=== PATIENT | female | born 1940 | race African-American/Black ===

== ENCOUNTER 2018-08-28 02:51 | Inpatient (IN) ==
[2018-08-28] MEDS ORDERED: methylPREDNISolone SOD SUC 125 MG/2 ML VIAL IV STA (03:08)
[2018-08-28] MEDS ORDERED: ONDANSETRON 4 MG/2 ML VIAL IV STA (03:08)
[2018-08-28] MEDS ORDERED: FUROSEMIDE 100 MG/10 ML VIAL IV STA (03:08)
[2018-08-28] MEDS ORDERED: ASPIRIN 325 MG TABLET PO STA (03:08)
[2018-08-28] MEDS ORDERED: ALBUTEROL 2.5 MG/3 ML NEB RESP TX SCH (03:30)
[2018-08-28 03:34] LABS: Basophils % 0.2 % (0.0-0.8); Hematocrit 34.7 VOL% (35.7-47.0); Immature Granulocytes % 0.8 %; Immature Granulocytes Absolute 0.12 #; Lymphocytes # 0.4 10*3/uL (1.4-4.0); Lymphocytes % 2.6 % (21.3-54.2); Mean Corpuscular HGB Conc 29.4 GM/DL (32-36); Mean Corpuscular Hemoglobin 26 PG (27-34); Mean Corpuscular Volume 88.7 FL (87-102); Mean Platelet Volume 10.9 FL (9.6-12.0); Monocytes # 0.3 10*3/uL (0.11-0.8); Monocytes % 1.8 % (1.7-12.7); Neutrophils % 94.6 % (38.7-73.9); Platelet Count 200 T/CUMM (130-400); Red Blood Count 3.91 MC/CUMM (3.8-5.5); Red Cell Distribution Width 18.6 % (9.3-17.3); White Blood Count 15.8 T/CUMM (4-12)
[2018-08-28 03:41] LABS: Hemoglobin 10.3 GM/DL (12.0-16.0)
[2018-08-28 03:43] LABS: INR 0.9; PT Patient Result 10.2 SECS
[2018-08-28 03:44] LABS: Apearance,Urine CLEAR (Clear); Bilirubin,Urine Negative (Negative); Blood, Urine Negative (Negative); Glucose,Urine (UA) Negative (Negative); Hyaline Casts,Urine 3 /LPF (0-3); Ketones,Urine Negative (Negative); Mucus,Urine Occasional /LPF (Occasional); Nitrite,Urine Negative (Negative); Protein,Urine Negative; RBC,Urine 8 /HPF (0-4); Urine Color Yellow (Yellow); Urine Specific Gravity 1.015 (1.001-1.035); Urine Urobilinogen < 2.0 EU/DL (0.2-1.0); WBC,Urine 12 /HPF (0-6)
[2018-08-28] MEDS ORDERED: PHENYLEPHRINE DRIP 40 MG/250 ML PREMIX IV ONE (03:45)
[2018-08-28 04:01] LABS: ABG Base Excess -4.6 MMOL/L (-2.5-2.5); ABG HCO3 20.5 MMOL/L (20-26); ABG Oxygen Saturation 95.9 % (95-100); ABG PCO2 34.4 MM HG (35-48); ABG PH 7.371 (7.35-7.45); ABG PO2 87.2 MM HG (80-95); ABG TCO2 18.1 MMOL/L (23-27)
[2018-08-28 04:03] LABS: Albumin 2.8 G/DL (3.4-5.0); Bilirubin,Total 0.4 MG/DL (0.2-1.0); Calcium 8.3 MG/DL (8.5-10.1); Osmolality,Calculated 301.4 MOS/KG (273-304); Potassium 4.1 MMOL/L (3.5-5.1); Total Protein 7.4 G/DL (6.4-8.3)
[2018-08-28] MEDS ORDERED: MAGNESIUM SULF RIDER 2 GM in PREMIX 1 EACH IV STA (04:37)
[2018-08-28] MEDS ORDERED: PIPERACILLIN/TAZOBACTAM 3,375 MG in SODIUM CHLORIDE 0.9% 100 ML IV STA (04:39)
[2018-08-28 04:48] LABS: Band Neutrophils 13 % (0-10); Lymphocytes 1 % (20-55); Segmented Neutrophils 84 % (50-85); Total Cells Counted 100
[2018-08-28 04:49] LABS: Anisocytosis 1+; Platelet Estimate Normal
[2018-08-28] MEDS: PHENYLEPHRINE DRIP 40 MG/250 ML PREMIX IV PRN (04:49)
[2018-08-28] MEDS ORDERED: ONDANSETRON 4 MG/2 ML VIAL IV PRN (05:40)
[2018-08-28] MEDS ORDERED: ACETAMINOPHEN 325 MG TABLET PO PRN (05:40)
[2018-08-28] MEDS ORDERED: ALBUTEROL/IPRATROPIUM 3 ML NEB RESP TX PRN (05:44)
[2018-08-28] MEDS ORDERED: GLUCAGON 1 MG VIAL IM PRN (05:45)
[2018-08-28] MEDS ORDERED: DEXTROSE 50% 25 GM/50 ML SYRINGE IV PRN (05:45)
[2018-08-28] MEDS ORDERED: FUROSEMIDE 40 MG/4 ML VIAL IV SCH (08:00)
[2018-08-28] MEDS ORDERED: metFORMIN 850 MG TABLET PO SCH (08:00)
[2018-08-28] MEDS: glipiZIDE 5 MG TABLET PO SCH ×2 (08:09→16:31)
[2018-08-28] MEDS: sitaGLIPtin 100 MG TABLET PO SCH (08:09)
[2018-08-28] MEDS: hydroCHLOROthiazide 12.5 MG CAPSULE PO SCH (08:09)
[2018-08-28] MEDS: MONTELUKAST 10 MG TABLET PO SCH (08:09)
[2018-08-28] MEDS: CEFTAROLINE 400 MG in SODIUM CHLORIDE 0.9% 100 ML IV SCH ×2 (08:10→18:17)
[2018-08-28] MEDS: predniSONE 20 MG TABLET PO SCH (08:10)
[2018-08-28] MEDS: PANTOPRAZOLE 40 MG TABLET PO SCH (08:10)
[2018-08-28] MEDS: INSULIN REGULAR 100 UNIT/ML SUBCUT SCH ×4 (08:11→21:10)
[2018-08-28] MEDS: ATENOLOL 25 MG TABLET PO SCH (08:12)
[2018-08-28] MEDS: ENOXAPARIN 40 MG/0.4 ML SYRINGE SUBCUT SCH (08:16)
[2018-08-28] MEDS: PENTOXIFYLLINE 400 MG TABLET PO SCH ×2 (08:16→21:10)
[2018-08-28] MEDS: ASPIRIN EC 81 MG TABLET PO SCH (08:16)
[2018-08-28] MEDS ORDERED: MAGNESIUM SULF RIDER 2 GM in PREMIX 1 EACH IV ONE (08:49)
[2018-08-28] MEDS ORDERED: VALSARTAN 160 MG TABLET PO SCH (09:00)
[2018-08-28] MEDS: FUROSEMIDE 40 MG/4 ML VIAL IV SCH ×2 (09:14→16:29)
[2018-08-29] MEDS: PHENYLEPHRINE DRIP 40 MG/250 ML PREMIX IV PRN ×3 (04:03→16:14)
[2018-08-29 04:56] LABS: Basophils # 0.1 10*3/uL (0.0-0.2); Basophils % 0.3 % (0.0-0.8); Hematocrit 33.3 VOL% (35.7-47.0); Hemoglobin 9.9 GM/DL (12.0-16.0); Immature Granulocytes % 1.7 %; Immature Granulocytes Absolute 0.39 #; Lymphocytes % 4.4 % (21.3-54.2); Mean Corpuscular HGB Conc 29.7 GM/DL (32-36); Mean Corpuscular Hemoglobin 26 PG (27-34); Mean Corpuscular Volume 87.4 FL (87-102); Monocytes # 1.2 10*3/uL (0.11-0.8); Monocytes % 5.1 % (1.7-12.7); Neutrophils # 20.4 10*3/uL (1.4-7.4); Neutrophils % 88.5 % (38.7-73.9); Red Blood Count 3.81 MC/CUMM (3.8-5.5); Red Cell Distribution Width 18.6 % (9.3-17.3)
[2018-08-29 04:58] LABS: Osmolality,Calculated 299.4 MOS/KG (273-304); Potassium 4.1 MMOL/L (3.5-5.1)
[2018-08-29 05:08] LABS: Platelet Count 114 T/CUMM (130-400)
[2018-08-29 06:09] LABS: Band Neutrophils 8 % (0-10); Lymphocytes 9 % (20-55); Platelet Estimate Decreased; Segmented Neutrophils 80 % (50-85); Total Cells Counted 100
[2018-08-29 06:10] LABS: Hypochromasia 2+
[2018-08-29] MEDS: ATENOLOL 25 MG TABLET PO SCH (08:08)
[2018-08-29] MEDS: hydroCHLOROthiazide 12.5 MG CAPSULE PO SCH (08:11)
[2018-08-29] MEDS: MONTELUKAST 10 MG TABLET PO SCH (08:36)
[2018-08-29] MEDS: sitaGLIPtin 100 MG TABLET PO SCH (08:36)
[2018-08-29] MEDS: ASPIRIN EC 81 MG TABLET PO SCH (08:40)
[2018-08-29] MEDS: PENTOXIFYLLINE 400 MG TABLET PO SCH ×2 (08:40→21:08)
[2018-08-29] MEDS: FUROSEMIDE 40 MG/4 ML VIAL IV SCH (08:40)
[2018-08-29] MEDS: predniSONE 20 MG TABLET PO SCH (08:40)
[2018-08-29] MEDS: PANTOPRAZOLE 40 MG TABLET PO SCH (08:40)
[2018-08-29] MEDS: glipiZIDE 5 MG TABLET PO SCH ×2 (08:41→17:06)
[2018-08-29] MEDS: ENOXAPARIN 40 MG/0.4 ML SYRINGE SUBCUT SCH (08:41)
[2018-08-29] MEDS: INSULIN REGULAR 100 UNIT/ML SUBCUT SCH ×4 (08:41→21:08)
[2018-08-29] MEDS: CEFTAROLINE 400 MG in SODIUM CHLORIDE 0.9% 100 ML IV SCH ×2 (08:42→19:00)
[2018-08-30] MEDS: PHENYLEPHRINE DRIP 40 MG/250 ML PREMIX IV PRN ×3 (01:37→15:50)
[2018-08-30] MEDS ORDERED: SODIUM CHLORIDE 0.9% 500 ML IV ONE (03:16)
[2018-08-30 03:50] LABS: Basophils # 0.1 10*3/uL (0.0-0.2); Basophils % 0.2 % (0.0-0.8); Hematocrit 32.2 VOL% (35.7-47.0); Hemoglobin 9.7 GM/DL (12.0-16.0); Immature Granulocytes % 1.5 %; Immature Granulocytes Absolute 0.37 #; Lymphocytes # 1.3 10*3/uL (1.4-4.0); Lymphocytes % 5.4 % (21.3-54.2); Mean Corpuscular HGB Conc 30.1 GM/DL (32-36); Mean Corpuscular Hemoglobin 26 PG (27-34); Mean Corpuscular Volume 87.3 FL (87-102); Mean Platelet Volume 11.4 FL (9.6-12.0); Monocytes # 1.2 10*3/uL (0.11-0.8); Neutrophils # 21.1 10*3/uL (1.4-7.4); Neutrophils % 87.9 % (38.7-73.9); Platelet Count 184 T/CUMM (130-400); Red Blood Count 3.69 MC/CUMM (3.8-5.5); Red Cell Distribution Width 18.3 % (9.3-17.3)
[2018-08-30 04:05] LABS: Allen Test Positive
[2018-08-30 04:05] LABS: Osmolality,Calculated 302.7 MOS/KG (273-304); Potassium 3.7 MMOL/L (3.5-5.1)
[2018-08-30 04:13] LABS: ABG Base Excess -3.9 MMOL/L (-2.5-2.5); ABG HCO3 21.1 MMOL/L (20-26); ABG Oxygen Saturation 95.7 % (95-100); ABG PCO2 45.5 MM HG (35-48); ABG PH 7.303 (7.35-7.45); ABG TCO2 20.7 MMOL/L (23-27)
[2018-08-30] MEDS ORDERED: AMIODARONE 450 MG/9 ML VIAL IV ONE (04:21)
[2018-08-30] MEDS ORDERED: AMIODARONE INJ 450 MG in DEXTROSE 5% 241 ML IV SCH (04:30)
[2018-08-30 04:59] LABS: Band Neutrophils 3 % (0-10); Lymphocytes 5 % (20-55); Platelet Estimate Normal; Segmented Neutrophils 89 % (50-85); Total Cells Counted 100
[2018-08-30] MEDS: CEFTAROLINE 400 MG in SODIUM CHLORIDE 0.9% 100 ML IV SCH ×2 (06:13→21:43)
[2018-08-30] MEDS: ASPIRIN EC 81 MG TABLET PO SCH (09:03)
[2018-08-30] MEDS: MONTELUKAST 10 MG TABLET PO SCH (09:03)
[2018-08-30] MEDS: predniSONE 20 MG TABLET PO SCH (09:03)
[2018-08-30] MEDS: glipiZIDE 5 MG TABLET PO SCH ×2 (09:03→18:08)
[2018-08-30] MEDS: FUROSEMIDE 80 MG TABLET PO SCH (09:03)
[2018-08-30] MEDS: ENOXAPARIN 40 MG/0.4 ML SYRINGE SUBCUT SCH (09:03)
[2018-08-30] MEDS: sitaGLIPtin 100 MG TABLET PO SCH (09:03)
[2018-08-30] MEDS: PENTOXIFYLLINE 400 MG TABLET PO SCH ×2 (09:03→21:43)
[2018-08-30] MEDS: INSULIN REGULAR 100 UNIT/ML SUBCUT SCH ×4 (09:04→21:43)
[2018-08-30] MEDS: hydroCHLOROthiazide 12.5 MG CAPSULE PO SCH (09:04)
[2018-08-30] MEDS: ATENOLOL 25 MG TABLET PO SCH (09:04)
[2018-08-30] MEDS: PANTOPRAZOLE 40 MG TABLET PO SCH (09:06)
[2018-08-30] MEDS: LEVOFLOXACIN INJ 750 MG in PREMIX 1 EACH IV SCH (11:00)
[2018-08-30] MEDS: methylPREDNISolone SOD SUC 40 MG/1 ML VIAL IV SCH ×2 (11:00→18:35)
[2018-08-30] MEDS: LOPERAMIDE 0.2 MG/ML 30 ML/BOTTLE PO PRN (22:49)
[2018-08-31] MEDS: methylPREDNISolone SOD SUC 40 MG/1 ML VIAL IV SCH ×3 (03:19→17:53)
[2018-08-31 04:04] LABS: Basophils % 0.2 % (0.0-0.8); Hemoglobin 10.4 GM/DL (12.0-16.0); Immature Granulocytes % 0.8 %; Immature Granulocytes Absolute 0.13 #; Lymphocytes # 0.5 10*3/uL (1.4-4.0); Lymphocytes % 3.1 % (21.3-54.2); Mean Corpuscular HGB Conc 30.6 GM/DL (32-36); Mean Corpuscular Hemoglobin 26 PG (27-34); Mean Corpuscular Volume 85.9 FL (87-102); Mean Platelet Volume 12.6 FL (9.6-12.0); Monocytes # 0.6 10*3/uL (0.11-0.8); Monocytes % 3.5 % (1.7-12.7); Neutrophils % 92.4 % (38.7-73.9); Platelet Count 195 T/CUMM (130-400); Red Blood Count 3.96 MC/CUMM (3.8-5.5); Red Cell Distribution Width 17.9 % (9.3-17.3); White Blood Count 16.2 T/CUMM (4-12)
[2018-08-31 04:34] LABS: Calcium 8.1 MG/DL (8.5-10.1); Osmolality,Calculated 312.4 MOS/KG (273-304); Potassium 3.6 MMOL/L (3.5-5.1)
[2018-08-31 05:03] LABS: Band Neutrophils 1 % (0-10); Lymphocytes 4 % (20-55); Segmented Neutrophils 94 % (50-85); Total Cells Counted 100
[2018-08-31 05:04] LABS: Hypochromasia 1+; Platelet Estimate Normal; Target Cells Few
[2018-08-31] MEDS: PHENYLEPHRINE DRIP 40 MG/250 ML PREMIX IV PRN (06:36)
[2018-08-31] MEDS: PANTOPRAZOLE 40 MG TABLET PO SCH (08:36)
[2018-08-31] MEDS: sitaGLIPtin 100 MG TABLET PO SCH (08:36)
[2018-08-31] MEDS: FUROSEMIDE 80 MG TABLET PO SCH (08:36)
[2018-08-31] MEDS: MONTELUKAST 10 MG TABLET PO SCH (08:36)
[2018-08-31] MEDS: INSULIN REGULAR 100 UNIT/ML SUBCUT SCH ×4 (08:36→20:21)
[2018-08-31] MEDS: ASPIRIN EC 81 MG TABLET PO SCH (08:36)
[2018-08-31] MEDS: glipiZIDE 5 MG TABLET PO SCH ×2 (08:36→17:52)
[2018-08-31] MEDS: PENTOXIFYLLINE 400 MG TABLET PO SCH ×2 (08:36→20:22)
[2018-08-31] MEDS: ENOXAPARIN 40 MG/0.4 ML SYRINGE SUBCUT SCH (08:37)
[2018-08-31] MEDS: hydroCHLOROthiazide 12.5 MG CAPSULE PO SCH (08:38)
[2018-08-31] MEDS: ATENOLOL 25 MG TABLET PO SCH (08:38)
[2018-08-31] MEDS: ceFAZolin 1,000 MG in SYRINGE 1 EACH IV SCH ×3 (09:45→20:21)
[2018-09-01] MEDS: methylPREDNISolone SOD SUC 40 MG/1 ML VIAL IV SCH ×3 (02:42→17:25)
[2018-09-01] MEDS: ceFAZolin 1,000 MG in SYRINGE 1 EACH IV SCH ×4 (02:43→20:47)
[2018-09-01 04:24] LABS: Basophils % 0.2 % (0.0-0.8); Hematocrit 34.9 VOL% (35.7-47.0); Hemoglobin 10.6 GM/DL (12.0-16.0); Immature Granulocytes % 0.9 %; Immature Granulocytes Absolute 0.13 #; Lymphocytes # 0.7 10*3/uL (1.4-4.0); Lymphocytes % 4.9 % (21.3-54.2); Mean Corpuscular HGB Conc 30.4 GM/DL (32-36); Mean Corpuscular Hemoglobin 26 PG (27-34); Mean Corpuscular Volume 86.2 FL (87-102); Mean Platelet Volume 12.4 FL (9.6-12.0); Monocytes # 0.6 10*3/uL (0.11-0.8); Monocytes % 4.6 % (1.7-12.7); NRBC # 0.15 10*3/uL; Neutrophils # 12.5 10*3/uL (1.4-7.4); Neutrophils % 89.4 % (38.7-73.9); Platelet Count 221 T/CUMM (130-400); Red Blood Count 4.05 MC/CUMM (3.8-5.5); Red Cell Distribution Width 17.6 % (9.3-17.3)
[2018-09-01 04:31] LABS: Calcium 8.2 MG/DL (8.5-10.1); Osmolality,Calculated 314.3 MOS/KG (273-304); Potassium 3.2 MMOL/L (3.5-5.1)
[2018-09-01] MEDS ORDERED: LACTATED RINGERS 1,000 ML IV SCH (09:30)
[2018-09-01] MEDS: INSULIN REGULAR 100 UNIT/ML SUBCUT SCH ×4 (09:51→20:47)
[2018-09-01] MEDS: ENOXAPARIN 30 MG/0.3 ML SYRINGE SUBCUT SCH (09:53)
[2018-09-01] MEDS: PENTOXIFYLLINE 400 MG TABLET PO SCH ×2 (09:54→20:48)
[2018-09-01] MEDS: POTASSIUM CHLORIDE 20 MEQ TABLET PO PRN ×4 (09:54→16:31)
[2018-09-01] MEDS: PANTOPRAZOLE 40 MG TABLET PO SCH (09:54)
[2018-09-01] MEDS: glipiZIDE 5 MG TABLET PO SCH ×2 (09:55→16:31)
[2018-09-01] MEDS: sitaGLIPtin 100 MG TABLET PO SCH (09:55)
[2018-09-01] MEDS: MONTELUKAST 10 MG TABLET PO SCH (09:55)
[2018-09-01] MEDS: ASPIRIN EC 81 MG TABLET PO SCH (09:55)
[2018-09-01] MEDS: LEVOFLOXACIN INJ 750 MG in PREMIX 1 EACH IV SCH (09:57)
[2018-09-01] MEDS: ATENOLOL 25 MG TABLET PO SCH (09:59)
[2018-09-01] MEDS: hydroCHLOROthiazide 12.5 MG CAPSULE PO SCH (10:02)
[2018-09-01] MEDS: FUROSEMIDE 80 MG TABLET PO SCH (10:03)
[2018-09-01] MEDS ORDERED: ESTRADIOL 0.01% VAG CREAM 42.5 GM TUBE VAG SCH (17:13)
[2018-09-01] MEDS: METHENAMINE HIPPURATE 1 GM TABLET PO SCH (20:47)
[2018-09-01] MEDS: tiZANidine 4 MG TABLET PO SCH (20:48)
[2018-09-01] MEDS: LOPERAMIDE 0.2 MG/ML 30 ML/BOTTLE PO PRN (22:20)
[2018-09-02] MEDS: ceFAZolin 1,000 MG in SYRINGE 1 EACH IV SCH ×4 (02:02→21:43)
[2018-09-02] MEDS: methylPREDNISolone SOD SUC 40 MG/1 ML VIAL IV SCH ×3 (02:02→17:03)
[2018-09-02 04:09] LABS: Basophils % 0.3 % (0.0-0.8); Hematocrit 34.3 VOL% (35.7-47.0); Hemoglobin 10.1 GM/DL (12.0-16.0); Immature Granulocytes % 1.6 %; Immature Granulocytes Absolute 0.19 #; Lymphocytes # 0.8 10*3/uL (1.4-4.0); Lymphocytes % 6.6 % (21.3-54.2); Mean Corpuscular HGB Conc 29.4 GM/DL (32-36); Mean Corpuscular Hemoglobin 25 PG (27-34); Mean Corpuscular Volume 86.4 FL (87-102); Mean Platelet Volume 11.7 FL (9.6-12.0); Monocytes # 0.9 10*3/uL (0.11-0.8); Monocytes % 7.4 % (1.7-12.7); NRBC # 0.04 10*3/uL; Neutrophils # 9.8 10*3/uL (1.4-7.4); Neutrophils % 84.1 % (38.7-73.9); Platelet Count 221 T/CUMM (130-400); Red Blood Count 3.97 MC/CUMM (3.8-5.5); Red Cell Distribution Width 17.7 % (9.3-17.3); White Blood Count 11.6 T/CUMM (4-12)
[2018-09-02 04:26] LABS: Calcium 8.2 MG/DL (8.5-10.1); Osmolality,Calculated 313.3 MOS/KG (273-304); Potassium 4.1 MMOL/L (3.5-5.1)
[2018-09-02] MEDS: glipiZIDE 5 MG TABLET PO SCH ×2 (08:29→16:53)
[2018-09-02] MEDS: ENOXAPARIN 30 MG/0.3 ML SYRINGE SUBCUT SCH (08:30)
[2018-09-02] MEDS: ASPIRIN EC 81 MG TABLET PO SCH (08:31)
[2018-09-02] MEDS: INSULIN REGULAR 100 UNIT/ML SUBCUT SCH ×4 (08:31→21:42)
[2018-09-02] MEDS: METHENAMINE HIPPURATE 1 GM TABLET PO SCH ×2 (08:32→21:43)
[2018-09-02] MEDS: sitaGLIPtin 100 MG TABLET PO SCH (08:32)
[2018-09-02] MEDS: PANTOPRAZOLE 40 MG TABLET PO SCH (08:33)
[2018-09-02] MEDS: tiZANidine 4 MG TABLET PO SCH ×3 (08:33→21:43)
[2018-09-02] MEDS: MONTELUKAST 10 MG TABLET PO SCH (08:33)
[2018-09-02] MEDS: CHOLECALCIFEROL 1,000 UNIT TABLET PO SCH (08:33)
[2018-09-02] MEDS: PENTOXIFYLLINE 400 MG TABLET PO SCH ×2 (08:34→21:43)
[2018-09-02] MEDS: ATENOLOL 25 MG TABLET PO SCH (16:53)
[2018-09-03] MEDS: ceFAZolin 1,000 MG in SYRINGE 1 EACH IV SCH ×4 (02:21→20:47)
[2018-09-03] MEDS: methylPREDNISolone SOD SUC 40 MG/1 ML VIAL IV SCH ×3 (02:21→18:10)
[2018-09-03] MEDS: ENOXAPARIN 30 MG/0.3 ML SYRINGE SUBCUT SCH (09:02)
[2018-09-03] MEDS: INSULIN REGULAR 100 UNIT/ML SUBCUT SCH ×4 (09:02→20:47)
[2018-09-03] MEDS: CHOLECALCIFEROL 1,000 UNIT TABLET PO SCH (09:03)
[2018-09-03] MEDS: ASPIRIN EC 81 MG TABLET PO SCH (09:03)
[2018-09-03] MEDS: tiZANidine 4 MG TABLET PO SCH ×3 (09:03→20:47)
[2018-09-03] MEDS: sitaGLIPtin 100 MG TABLET PO SCH (09:03)
[2018-09-03] MEDS: PANTOPRAZOLE 40 MG TABLET PO SCH (09:03)
[2018-09-03] MEDS: MONTELUKAST 10 MG TABLET PO SCH (09:03)
[2018-09-03] MEDS: glipiZIDE 5 MG TABLET PO SCH ×2 (09:03→16:17)
[2018-09-03] MEDS: ATENOLOL 25 MG TABLET PO SCH (09:04)
[2018-09-03] MEDS: PENTOXIFYLLINE 400 MG TABLET PO SCH ×2 (09:04→20:47)
[2018-09-03] MEDS: METHENAMINE HIPPURATE 1 GM TABLET PO SCH ×2 (09:06→20:47)
[2018-09-03] MEDS: LEVOFLOXACIN INJ 750 MG in PREMIX 1 EACH IV SCH (09:56)
[2018-09-04] MEDS: methylPREDNISolone SOD SUC 40 MG/1 ML VIAL IV SCH ×2 (01:32→09:24)
[2018-09-04] MEDS: ceFAZolin 1,000 MG in SYRINGE 1 EACH IV SCH ×2 (01:34→09:25)
[2018-09-04] MEDS: PENTOXIFYLLINE 400 MG TABLET PO SCH (09:23)
[2018-09-04] MEDS: sitaGLIPtin 100 MG TABLET PO SCH (09:23)
[2018-09-04] MEDS: CHOLECALCIFEROL 1,000 UNIT TABLET PO SCH (09:23)
[2018-09-04] MEDS: tiZANidine 4 MG TABLET PO SCH (09:24)
[2018-09-04] MEDS: METHENAMINE HIPPURATE 1 GM TABLET PO SCH (09:24)
[2018-09-04] MEDS: ASPIRIN EC 81 MG TABLET PO SCH (09:24)
[2018-09-04] MEDS: glipiZIDE 5 MG TABLET PO SCH (09:24)
[2018-09-04] MEDS: ATENOLOL 25 MG TABLET PO SCH (09:24)
[2018-09-04] MEDS: MONTELUKAST 10 MG TABLET PO SCH (09:24)
[2018-09-04] MEDS: PANTOPRAZOLE 40 MG TABLET PO SCH (09:24)
[2018-09-04] MEDS: ENOXAPARIN 30 MG/0.3 ML SYRINGE SUBCUT SCH (09:25)
[2018-09-04] MEDS: INSULIN REGULAR 100 UNIT/ML SUBCUT SCH ×2 (09:35→14:02)
[2018-09-04 14:00] VITALS: BP 113/61
[2018-09-04] MEDS ORDERED: cephALEXin 500 MG CAPSULE PO SCH (21:00)
== END 2018-09-04 14:36 | disposition swing bed (61) | DRG 871 ==
LOC: EDUNIT# → EDBD → N.ED 02:51 → N.EDINP 05:40 → SUATTDRO 05:40 → N.ICU 06:03 → N.5E 09-03 22:05
PROVIDERS: ADMIT Internal Medicine; ATTEND Hospitalist

== ENCOUNTER 2018-10-07 16:00 | Inpatient (IN) ==
[2018-10-07] MEDS ORDERED: FUROSEMIDE 100 MG/10 ML VIAL IV STA (16:37)
[2018-10-07] MEDS ORDERED: ONDANSETRON 4 MG/2 ML VIAL IV STA (16:37)
[2018-10-07] MEDS ORDERED: LEVOFLOXACIN INJ 750 MG in PREMIX 1 EACH IV STA (16:37)
[2018-10-07] MEDS ORDERED: ALBUTEROL/IPRATROPIUM 3 ML NEB RESP TX STA (16:37)
[2018-10-07] MEDS ORDERED: methylPREDNISolone SOD SUC 125 MG/2 ML VIAL IV STA (16:37)
[2018-10-07 17:07] LABS: Basophils % 0.3 % (0.0-0.8); Eosinophils # 0.1 10*3/uL (0.0-0.87); Eosinophils % 0.6 % (0.00-10.9); Hematocrit 35.8 VOL% (35.7-47.0); Hemoglobin 10.5 GM/DL (12.0-16.0); Immature Granulocytes % 2.3 %; Immature Granulocytes Absolute 0.25 #; Lymphocytes # 1.2 10*3/uL (1.4-4.0); Lymphocytes % 10.5 % (21.3-54.2); Mean Corpuscular HGB Conc 29.3 GM/DL (32-36); Mean Platelet Volume 10.8 FL (9.6-12.0); Monocytes % 5.5 % (1.7-12.7); NRBC # 0.23 10*3/uL; Neutrophils % 80.8 % (38.7-73.9); Platelet Count 376 T/CUMM (130-400); Red Blood Count 4.07 MC/CUMM (3.8-5.5); Red Cell Distribution Width 19.7 % (9.3-17.3)
[2018-10-07 17:18] LABS: PT Patient Result 10.4 SECS; Partial Thromboplastin Time 21.5 SECS (0-40)
[2018-10-07 17:31] LABS: Apearance,Urine CLEAR (Clear); Bacteria,Urine Occasional /HPF (Few); Bilirubin,Urine Negative (Negative); Blood, Urine Negative (Negative); Glucose,Urine (UA) Negative (Negative); Hyaline Casts,Urine 3 /LPF (0-3); Ketones,Urine Negative (Negative); Mucus,Urine Occasional /LPF (Occasional); Nitrite,Urine Negative (Negative); Protein,Urine Negative; RBC,Urine <1 /HPF (0-4); Squamous Epithelial Cell,Urine Occasional /HPF (0-10); Urine Color Straw (Yellow); Urine Specific Gravity 1.009 (1.001-1.035); Urine Urobilinogen < 2.0 EU/DL (0.2-1.0); WBC,Urine 2 /HPF (0-6)
[2018-10-07 17:32] LABS: Albumin 2.9 G/DL (3.4-5.0); Bilirubin,Total 0.4 MG/DL (0.2-1.0); Calcium 8.7 MG/DL (8.5-10.1); Osmolality,Calculated 303.3 MOS/KG (273-304); Total Protein 7.4 G/DL (6.4-8.3)
[2018-10-07 17:33] LABS: Barbiturates Screen,Urine Negative (Negative); Benzodiazepines Screen,Urine Negative (Negative); Cannabinoid Screen,Urine Negative (Negative); Opiate Screen,Urine Negative (Negative); Phencyclidine Screen,Urine Negative (Negative)
[2018-10-07] MEDS ORDERED: DEXTROSE 50% 25 GM/50 ML VIAL IV PRN (21:24)
[2018-10-07] MEDS ORDERED: GLUCAGON 1 MG VIAL IM PRN (21:24)
[2018-10-07] MEDS: HEPARIN 5,000 UNIT/1 ML VIAL SUBCUT SCH (23:33)
[2018-10-08] MEDS: ALBUTEROL 0.63 MG/3 ML NEB RESP TX SCH ×4 (01:31→20:23)
[2018-10-08 05:41] LABS: Basophils % 0.1 % (0.0-0.8); Hematocrit 35.4 VOL% (35.7-47.0); Hemoglobin 10.4 GM/DL (12.0-16.0); Immature Granulocytes % 2.3 %; Immature Granulocytes Absolute 0.19 #; Lymphocytes # 0.5 10*3/uL (1.4-4.0); Mean Corpuscular HGB Conc 29.4 GM/DL (32-36); Mean Corpuscular Volume 88.7 FL (87-102); Mean Platelet Volume 11.3 FL (9.6-12.0); Monocytes % 1.8 % (1.7-12.7); NRBC # 0.11 10*3/uL; Neutrophils % 89.8 % (38.7-73.9); Platelet Count 373 T/CUMM (130-400); Red Blood Count 3.99 MC/CUMM (3.8-5.5); Red Cell Distribution Width 19.3 % (9.3-17.3); White Blood Count 8.2 T/CUMM (4-12)
[2018-10-08 05:54] LABS: Calcium 8.5 MG/DL (8.5-10.1); Thyroid Stimulating Hormone 0.294 uIU/ml (0.358-3.74)
[2018-10-08 06:40] LABS: Hypochromasia 1+; Platelet Estimate Adequate
[2018-10-08] MEDS: HEPARIN 5,000 UNIT/1 ML VIAL SUBCUT SCH ×3 (08:11→22:47)
[2018-10-08] MEDS: INSULIN LISPRO 100 UNIT/ML SUBCUT SCH ×4 (08:12→20:17)
[2018-10-08] MEDS: ASPIRIN EC 81 MG TABLET PO SCH (08:12)
[2018-10-08] MEDS: CHOLECALCIFEROL 1,000 UNIT TABLET PO SCH (08:12)
[2018-10-08] MEDS: FUROSEMIDE 40 MG/4 ML VIAL IV SCH ×2 (08:12→15:05)
[2018-10-08] MEDS: MONTELUKAST 10 MG TABLET PO SCH (08:12)
[2018-10-08] MEDS: ATENOLOL 25 MG TABLET PO SCH (08:12)
[2018-10-08] MEDS ORDERED: PENTOXIFYLLINE 400 MG TABLET PO SCH (09:00)
[2018-10-08] MEDS: sitaGLIPtin 100 MG TABLET PO SCH (09:59)
[2018-10-08] MEDS: tiZANidine 4 MG TABLET PO SCH ×2 (14:25→20:16)
[2018-10-08] MEDS: diphenhydrAMINE CAP 25 MG CAPSULE PO PRN (15:03)
[2018-10-08] MEDS: glipiZIDE 10 MG TABLET PO SCH (16:16)
[2018-10-08] MEDS: LEVOFLOXACIN INJ 500 MG in PREMIX 1 EACH IV SCH (18:06)
[2018-10-08] MEDS: METHENAMINE HIPPURATE 1 GM TABLET PO SCH (20:16)
[2018-10-09] MEDS: ALBUTEROL 0.63 MG/3 ML NEB RESP TX SCH ×4 (00:50→19:17)
[2018-10-09 05:36] LABS: Basophils % 0.3 % (0.0-0.8); Eosinophils # 0.1 10*3/uL (0.0-0.87); Eosinophils % 0.9 % (0.00-10.9); Immature Granulocytes Absolute 0.09 #; Lymphocytes # 1.6 10*3/uL (1.4-4.0); Lymphocytes % 18.1 % (21.3-54.2); Mean Corpuscular HGB Conc 28.6 GM/DL (32-36); Mean Corpuscular Volume 89.1 FL (87-102); Mean Platelet Volume 11.2 FL (9.6-12.0); Monocytes % 10.3 % (1.7-12.7); NRBC # 0.09 10*3/uL; Neutrophils % 69.4 % (38.7-73.9); Platelet Count 361 T/CUMM (130-400); Red Blood Count 3.77 MC/CUMM (3.8-5.5); Red Cell Distribution Width 19.2 % (9.3-17.3); White Blood Count 8.9 T/CUMM (4-12)
[2018-10-09 05:45] LABS: Calcium 8.4 MG/DL (8.5-10.1); Osmolality,Calculated 302.8 MOS/KG (273-304)
[2018-10-09 06:13] LABS: Hematocrit 33.1 VOL% (35.7-47.0); Hemoglobin 9.6 GM/DL (12.0-16.0)
[2018-10-09] MEDS: HEPARIN 5,000 UNIT/1 ML VIAL SUBCUT SCH (06:17)
[2018-10-09 06:27] LABS: Hypochromasia 1+; Platelet Estimate Adequate
[2018-10-09] MEDS: INSULIN LISPRO 100 UNIT/ML SUBCUT SCH ×4 (08:43→21:36)
[2018-10-09 08:51] LABS: ABG Base Excess 2.6 MMOL/L (-2.5-2.5); ABG HCO3 26.6 MMOL/L (20-26); ABG Oxygen Saturation 91.3 % (95-100); ABG PCO2 53.8 MM HG (35-48); ABG PH 7.345 (7.35-7.45); ABG PO2 68.5 MM HG (80-95); ABG TCO2 26.7 MMOL/L (23-27)
[2018-10-09] MEDS: sitaGLIPtin 100 MG TABLET PO SCH (08:59)
[2018-10-09] MEDS: MONTELUKAST 10 MG TABLET PO SCH (08:59)
[2018-10-09] MEDS: METHENAMINE HIPPURATE 1 GM TABLET PO SCH ×2 (08:59→20:48)
[2018-10-09] MEDS: CHOLECALCIFEROL 1,000 UNIT TABLET PO SCH (08:59)
[2018-10-09] MEDS: ATENOLOL 25 MG TABLET PO SCH (08:59)
[2018-10-09] MEDS: tiZANidine 4 MG TABLET PO SCH ×3 (08:59→20:48)
[2018-10-09] MEDS: diphenhydrAMINE CAP 25 MG CAPSULE PO PRN (09:00)
[2018-10-09] MEDS: FUROSEMIDE 40 MG/4 ML VIAL IV SCH ×2 (09:00→16:34)
[2018-10-09] MEDS: ASPIRIN EC 81 MG TABLET PO SCH (09:00)
[2018-10-09] MEDS: glipiZIDE 10 MG TABLET PO SCH (09:11)
[2018-10-09] MEDS ORDERED: CLINDAMYCIN INJ 600 MG in PREMIX 1 EACH IV SCH (10:00)
[2018-10-09] MEDS: ENOXAPARIN 40 MG/0.4 ML SYRINGE SUBCUT SCH (10:54)
[2018-10-09] MEDS: PIPERACILLIN/TAZOBACTAM 3,375 MG in SODIUM CHLORIDE 0.9% 100 ML IV SCH ×2 (10:55→20:48)
[2018-10-09] MEDS: VANCOMYCIN INJ 1,500 MG in SODIUM CHLORIDE 0.9% 500 ML IV SCH ×2 (12:04→13:40)
[2018-10-09] MEDS ORDERED: FUROSEMIDE 40 MG/4 ML VIAL IV SCH (12:14)
[2018-10-09 16:09] LABS: Calcium 8.4 MG/DL (8.5-10.1)
[2018-10-09] MEDS: glipiZIDE 5 MG TABLET PO SCH (16:33)
[2018-10-09] MEDS: LEVOFLOXACIN INJ 500 MG in PREMIX 1 EACH IV SCH (17:43)
[2018-10-09] MEDS: POTASSIUM CHLORIDE RIDER 10 MEQ in PREMIX 1 EACH IV PRN ×2 (20:48→22:31)
[2018-10-09] MEDS: POTASSIUM CHLORIDE 20 MEQ TABLET PO SCH (21:35)
[2018-10-10] MEDS: POTASSIUM CHLORIDE RIDER 10 MEQ in PREMIX 1 EACH IV PRN ×2 (00:30→02:32)
[2018-10-10] MEDS: ALBUTEROL 0.63 MG/3 ML NEB RESP TX SCH ×4 (00:58→20:08)
[2018-10-10] MEDS: PIPERACILLIN/TAZOBACTAM 3,375 MG in SODIUM CHLORIDE 0.9% 100 ML IV SCH ×3 (02:32→18:04)
[2018-10-10 04:02] LABS: Calcium 8.7 MG/DL (8.5-10.1); Osmolality,Calculated 290.1 MOS/KG (273-304)
[2018-10-10] MEDS ORDERED: MAGNESIUM SULF RIDER 2 GM in PREMIX 1 EACH IV ONE (04:53)
[2018-10-10] MEDS: glipiZIDE 5 MG TABLET PO SCH (07:58)
[2018-10-10] MEDS: INSULIN LISPRO 100 UNIT/ML SUBCUT SCH ×4 (07:58→20:09)
[2018-10-10] MEDS: ENOXAPARIN 40 MG/0.4 ML SYRINGE SUBCUT SCH (08:43)
[2018-10-10] MEDS: ASPIRIN EC 81 MG TABLET PO SCH (08:44)
[2018-10-10] MEDS: MONTELUKAST 10 MG TABLET PO SCH (08:44)
[2018-10-10] MEDS: FUROSEMIDE 40 MG/4 ML VIAL IV SCH ×2 (08:44→15:31)
[2018-10-10] MEDS: CHOLECALCIFEROL 1,000 UNIT TABLET PO SCH (08:44)
[2018-10-10] MEDS: sitaGLIPtin 100 MG TABLET PO SCH (08:45)
[2018-10-10] MEDS: METHENAMINE HIPPURATE 1 GM TABLET PO SCH ×2 (08:45→20:09)
[2018-10-10] MEDS: POTASSIUM CHLORIDE 20 MEQ TABLET PO SCH ×2 (08:45→20:09)
[2018-10-10] MEDS: ATENOLOL 25 MG TABLET PO SCH (08:45)
[2018-10-10] MEDS ORDERED: sitaGLIPtin 100 MG TABLET PO SCH (08:47)
[2018-10-10] MEDS: tiZANidine 4 MG TABLET PO SCH ×3 (08:48→20:09)
[2018-10-10] MEDS ORDERED: MAGNESIUM SULF RIDER 4 GM in PREMIX 1 EACH IV PRN (09:41)
[2018-10-10] MEDS ORDERED: MAGNESIUM SULF RIDER 2 GM in PREMIX 1 EACH IV PRN (09:41)
[2018-10-10 10:18] LABS: % Iron Saturation 7.1 % (18-50); Free T4 (Free Thyroxine) 1.35 NG/DL (0.76-1.46)
[2018-10-10 11:13] LABS: ABG HCO3 37.9 MMOL/L (20-26); ABG Oxygen Saturation 98.7 % (95-100); ABG PCO2 63.6 MM HG (35-48); ABG PH 7.422 (7.35-7.45); ABG TCO2 37.2 MMOL/L (23-27); Allen Test Positive
[2018-10-10] MEDS: VANCOMYCIN INJ 1,500 MG in SODIUM CHLORIDE 0.9% 500 ML IV SCH (12:04)
[2018-10-10 14:23] LABS: Troponin I < 0.015 NG/ML (0.00-0.045)
[2018-10-10] MEDS: LEVOFLOXACIN INJ 500 MG in PREMIX 1 EACH IV SCH (17:21)
[2018-10-11] MEDS: ALBUTEROL 0.63 MG/3 ML NEB RESP TX SCH ×4 (01:21→20:06)
[2018-10-11] MEDS: PIPERACILLIN/TAZOBACTAM 3,375 MG in SODIUM CHLORIDE 0.9% 100 ML IV SCH ×3 (03:10→18:24)
[2018-10-11 03:37] LABS: ABG Base Excess 14.9 MMOL/L (-2.5-2.5); ABG PO2 70.3 MM HG (80-95); ABG TCO2 42.8 MMOL/L (23-27); Allen Test Positive
[2018-10-11 04:29] LABS: Calcium 9.3 MG/DL (8.5-10.1); Osmolality,Calculated 289.4 MOS/KG (273-304)
[2018-10-11] MEDS: INSULIN LISPRO 100 UNIT/ML SUBCUT SCH ×4 (07:57→20:11)
[2018-10-11] MEDS: FUROSEMIDE 40 MG/4 ML VIAL IV SCH ×2 (08:37→16:43)
[2018-10-11] MEDS: ASPIRIN EC 81 MG TABLET PO SCH (08:38)
[2018-10-11] MEDS: METHENAMINE HIPPURATE 1 GM TABLET PO SCH ×2 (08:38→20:11)
[2018-10-11] MEDS: MONTELUKAST 10 MG TABLET PO SCH (08:38)
[2018-10-11] MEDS: CHOLECALCIFEROL 1,000 UNIT TABLET PO SCH (08:38)
[2018-10-11] MEDS: POTASSIUM CHLORIDE 20 MEQ TABLET PO SCH ×2 (08:38→20:11)
[2018-10-11] MEDS: ATENOLOL 25 MG TABLET PO SCH (08:38)
[2018-10-11] MEDS: ENOXAPARIN 40 MG/0.4 ML SYRINGE SUBCUT SCH (08:38)
[2018-10-11] MEDS: tiZANidine 4 MG TABLET PO SCH ×3 (08:38→20:11)
[2018-10-11] MEDS: VANCOMYCIN INJ 1,500 MG in SODIUM CHLORIDE 0.9% 500 ML IV SCH (12:06)
[2018-10-11] MEDS: glipiZIDE 5 MG TABLET PO SCH (16:44)
[2018-10-11] MEDS: LEVOFLOXACIN INJ 500 MG in PREMIX 1 EACH IV SCH (17:15)
[2018-10-12] MEDS: ALBUTEROL 0.63 MG/3 ML NEB RESP TX SCH ×4 (01:34→19:17)
[2018-10-12] MEDS: PIPERACILLIN/TAZOBACTAM 3,375 MG in SODIUM CHLORIDE 0.9% 100 ML IV SCH ×3 (04:30→21:57)
[2018-10-12 04:47] LABS: Calcium 9.5 MG/DL (8.5-10.1); Osmolality,Calculated 293.3 MOS/KG (273-304)
[2018-10-12] MEDS: glipiZIDE 5 MG TABLET PO SCH ×2 (07:17→19:35)
[2018-10-12] MEDS: INSULIN LISPRO 100 UNIT/ML SUBCUT SCH ×4 (07:17→21:32)
[2018-10-12] MEDS: FUROSEMIDE 40 MG/4 ML VIAL IV SCH ×2 (08:47→15:40)
[2018-10-12] MEDS: CHOLECALCIFEROL 1,000 UNIT TABLET PO SCH (08:47)
[2018-10-12] MEDS: METHENAMINE HIPPURATE 1 GM TABLET PO SCH ×2 (08:47→21:32)
[2018-10-12] MEDS: ATENOLOL 25 MG TABLET PO SCH (08:47)
[2018-10-12] MEDS: ASPIRIN EC 81 MG TABLET PO SCH (08:47)
[2018-10-12] MEDS: MONTELUKAST 10 MG TABLET PO SCH (08:47)
[2018-10-12] MEDS: tiZANidine 4 MG TABLET PO SCH ×3 (08:47→21:32)
[2018-10-12] MEDS: POTASSIUM CHLORIDE 20 MEQ TABLET PO SCH ×2 (08:47→21:32)
[2018-10-12] MEDS: ENOXAPARIN 40 MG/0.4 ML SYRINGE SUBCUT SCH (08:48)
[2018-10-12] MEDS: VANCOMYCIN INJ 1,500 MG in SODIUM CHLORIDE 0.9% 500 ML IV SCH (11:54)
[2018-10-12] MEDS: LEVOFLOXACIN INJ 500 MG in PREMIX 1 EACH IV SCH (19:34)
[2018-10-13] MEDS: ALBUTEROL 0.63 MG/3 ML NEB RESP TX SCH ×4 (00:58→18:50)
[2018-10-13] MEDS: PIPERACILLIN/TAZOBACTAM 3,375 MG in SODIUM CHLORIDE 0.9% 100 ML IV SCH ×3 (03:14→20:45)
[2018-10-13 05:40] LABS: Calcium 9.6 MG/DL (8.5-10.1); Osmolality,Calculated 293.3 MOS/KG (273-304)
[2018-10-13 07:04] LABS: Basophils % 0.4 % (0.0-0.8); Eosinophils # 0.3 10*3/uL (0.0-0.87); Eosinophils % 3.4 % (0.00-10.9); Immature Granulocytes % 0.8 %; Immature Granulocytes Absolute 0.08 #; Lymphocytes # 1.4 10*3/uL (1.4-4.0); Lymphocytes % 14.2 % (21.3-54.2); Mean Corpuscular Volume 87.1 FL (87-102); Mean Platelet Volume 11.3 FL (9.6-12.0); Monocytes % 13.4 % (1.7-12.7); Neutrophils % 67.8 % (38.7-73.9); Platelet Count 289 T/CUMM (130-400); Red Blood Count 4.48 MC/CUMM (3.8-5.5); Red Cell Distribution Width 18.1 % (9.3-17.3); White Blood Count 9.8 T/CUMM (4-12)
[2018-10-13 07:06] LABS: Hemoglobin 11.3 GM/DL (12.0-16.0)
[2018-10-13] MEDS: FUROSEMIDE 40 MG/4 ML VIAL IV SCH (08:27)
[2018-10-13] MEDS: ASPIRIN EC 81 MG TABLET PO SCH (08:29)
[2018-10-13] MEDS: ATENOLOL 25 MG TABLET PO SCH (08:29)
[2018-10-13] MEDS: POTASSIUM CHLORIDE 20 MEQ TABLET PO SCH ×2 (08:29→20:46)
[2018-10-13] MEDS: glipiZIDE 5 MG TABLET PO SCH ×3 (08:29→15:37)
[2018-10-13] MEDS: tiZANidine 4 MG TABLET PO SCH ×3 (08:29→20:45)
[2018-10-13] MEDS: METHENAMINE HIPPURATE 1 GM TABLET PO SCH ×2 (08:29→20:45)
[2018-10-13] MEDS: ENOXAPARIN 40 MG/0.4 ML SYRINGE SUBCUT SCH (08:29)
[2018-10-13] MEDS: MONTELUKAST 10 MG TABLET PO SCH (08:29)
[2018-10-13] MEDS: CHOLECALCIFEROL 1,000 UNIT TABLET PO SCH (08:29)
[2018-10-13] MEDS: MAGNESIUM SULF RIDER 2 GM in PREMIX 1 EACH IV SCH ×2 (08:30→15:19)
[2018-10-13] MEDS: INSULIN LISPRO 100 UNIT/ML SUBCUT SCH ×4 (08:30→20:46)
[2018-10-13] MEDS ORDERED: CYANOCOBALAMIN 1000 MCG/1 ML VIAL IM ONE (11:00)
[2018-10-13] MEDS ORDERED: LORazepam 2 MG/1 ML VIAL IV ONE (12:50)
[2018-10-13] MEDS: FERROUS SULFATE 325 MG TABLET PO SCH ×2 (13:03→20:45)
[2018-10-13] MEDS: VANCOMYCIN INJ 1,500 MG in SODIUM CHLORIDE 0.9% 500 ML IV SCH (13:50)
[2018-10-14] MEDS: ALBUTEROL 0.63 MG/3 ML NEB RESP TX SCH ×4 (00:15→19:10)
[2018-10-14] MEDS: PIPERACILLIN/TAZOBACTAM 3,375 MG in SODIUM CHLORIDE 0.9% 100 ML IV SCH ×3 (02:15→18:09)
[2018-10-14 03:53] LABS: Basophils % 0.3 % (0.0-0.8); Eosinophils # 0.4 10*3/uL (0.0-0.87); Eosinophils % 4.1 % (0.00-10.9); Hemoglobin 11.1 GM/DL (12.0-16.0); Immature Granulocytes % 0.7 %; Immature Granulocytes Absolute 0.07 #; Lymphocytes # 1.4 10*3/uL (1.4-4.0); Lymphocytes % 14.7 % (21.3-54.2); Mean Corpuscular HGB Conc 29.3 GM/DL (32-36); Mean Corpuscular Volume 85.6 FL (87-102); Mean Platelet Volume 10.6 FL (9.6-12.0); Monocytes % 10.7 % (1.7-12.7); Neutrophils % 69.5 % (38.7-73.9); Platelet Count 250 T/CUMM (130-400); Red Blood Count 4.43 MC/CUMM (3.8-5.5); Red Cell Distribution Width 17.9 % (9.3-17.3); White Blood Count 9.6 T/CUMM (4-12)
[2018-10-14 03:54] LABS: Hematocrit 37.9 VOL% (35.7-47.0)
[2018-10-14 04:07] LABS: Calcium 8.7 MG/DL (8.5-10.1); Osmolality,Calculated 295.4 MOS/KG (273-304)
[2018-10-14 04:08] LABS: Calcium 8.7 MG/DL (8.5-10.1); Osmolality,Calculated 293.5 MOS/KG (273-304)
[2018-10-14] MEDS: glipiZIDE 5 MG TABLET PO SCH ×2 (08:14→16:32)
[2018-10-14] MEDS: INSULIN LISPRO 100 UNIT/ML SUBCUT SCH ×4 (08:14→21:32)
[2018-10-14] MEDS: ENOXAPARIN 40 MG/0.4 ML SYRINGE SUBCUT SCH (08:54)
[2018-10-14] MEDS: POTASSIUM CHLORIDE 20 MEQ TABLET PO SCH ×2 (08:55→20:08)
[2018-10-14] MEDS: ACETYLCYSTEINE 600 MG CAPSULE PO SCH ×2 (08:55→20:08)
[2018-10-14] MEDS: FUROSEMIDE 20 MG TABLET PO SCH (08:55)
[2018-10-14] MEDS: ASPIRIN EC 81 MG TABLET PO SCH (08:55)
[2018-10-14] MEDS: FERROUS SULFATE 325 MG TABLET PO SCH ×2 (08:56→20:08)
[2018-10-14] MEDS: METHENAMINE HIPPURATE 1 GM TABLET PO SCH ×2 (08:56→20:08)
[2018-10-14] MEDS: tiZANidine 4 MG TABLET PO SCH ×3 (08:57→20:08)
[2018-10-14] MEDS: MONTELUKAST 10 MG TABLET PO SCH (08:57)
[2018-10-14] MEDS: ATENOLOL 25 MG TABLET PO SCH (08:57)
[2018-10-14] MEDS: CHOLECALCIFEROL 1,000 UNIT TABLET PO SCH (08:58)
[2018-10-14] MEDS ORDERED: MAGNESIUM SULF RIDER 2 GM in PREMIX 1 EACH IV PRN (09:02)
[2018-10-14] MEDS ORDERED: POTASSIUM CHLORIDE RIDER 10 MEQ in PREMIX 1 EACH IV PRN (09:02)
[2018-10-14] MEDS ORDERED: diphenhydrAMINE CAP 25 MG CAPSULE PO ONE (09:02)
[2018-10-14] MEDS ORDERED: DIAZEPAM 5 MG TABLET PO ONE (09:02)
[2018-10-14] MEDS: SODIUM CHLORIDE 0.45% 1,000 ML IV SCH (11:12)
[2018-10-14] MEDS: NYSTATIN POWDER 15 GM BOTTLE TOP SCH ×2 (11:12→20:12)
[2018-10-14] MEDS ORDERED: LIDOCAINE 1% 20 ML VIAL ONE (12:13)
[2018-10-14] MEDS ORDERED: MIDAZOLAM 2 MG/2 ML VIAL ONE (12:27)
[2018-10-14] MEDS ORDERED: fentaNYL 100 MCG/2 ML VIAL ONE (12:27)
[2018-10-15] MEDS: ALBUTEROL 0.63 MG/3 ML NEB RESP TX SCH ×3 (00:25→14:39)
[2018-10-15] MEDS: PIPERACILLIN/TAZOBACTAM 3,375 MG in SODIUM CHLORIDE 0.9% 100 ML IV SCH ×3 (02:33→11:52)
[2018-10-15] MEDS: SODIUM CHLORIDE 0.45% 1,000 ML IV SCH ×2 (03:39→09:04)
[2018-10-15 05:46] LABS: Immature Granulocytes % 0.6 %
[2018-10-15 06:05] LABS: Basophils % 0.3 % (0.0-0.8); Eosinophils # 0.4 10*3/uL (0.0-0.87); Eosinophils % 4.7 % (0.00-10.9); Hematocrit 35.1 VOL% (35.7-47.0); Hemoglobin 10.5 GM/DL (12.0-16.0); Immature Granulocytes Absolute 0.05 #; Lymphocytes # 1.4 10*3/uL (1.4-4.0); Lymphocytes % 15.4 % (21.3-54.2); Mean Corpuscular HGB Conc 29.9 GM/DL (32-36); Mean Corpuscular Volume 85.4 FL (87-102); Mean Platelet Volume 12.7 FL (9.6-12.0); Platelet Count 244 T/CUMM (130-400); Red Blood Count 4.11 MC/CUMM (3.8-5.5); Red Cell Distribution Width 17.9 % (9.3-17.3)
[2018-10-15 06:06] LABS: Calcium 8.4 MG/DL (8.5-10.1); Osmolality,Calculated 292.4 MOS/KG (273-304)
[2018-10-15] MEDS: INSULIN LISPRO 100 UNIT/ML SUBCUT SCH ×2 (08:25→11:58)
[2018-10-15] MEDS: METHENAMINE HIPPURATE 1 GM TABLET PO SCH (09:01)
[2018-10-15] MEDS: ASPIRIN EC 81 MG TABLET PO SCH (09:01)
[2018-10-15] MEDS: MONTELUKAST 10 MG TABLET PO SCH (09:01)
[2018-10-15] MEDS: tiZANidine 4 MG TABLET PO SCH ×2 (09:01→14:33)
[2018-10-15] MEDS: ACETYLCYSTEINE 600 MG CAPSULE PO SCH (09:01)
[2018-10-15] MEDS: CHOLECALCIFEROL 1,000 UNIT TABLET PO SCH (09:01)
[2018-10-15] MEDS: POTASSIUM CHLORIDE 20 MEQ TABLET PO SCH (09:02)
[2018-10-15] MEDS: FUROSEMIDE 20 MG TABLET PO SCH (09:02)
[2018-10-15] MEDS: ATENOLOL 25 MG TABLET PO SCH (09:02)
[2018-10-15] MEDS: FERROUS SULFATE 325 MG TABLET PO SCH (09:02)
[2018-10-15] MEDS: glipiZIDE 5 MG TABLET PO SCH (09:02)
[2018-10-15] MEDS: ENOXAPARIN 40 MG/0.4 ML SYRINGE SUBCUT SCH (09:03)
[2018-10-15] MEDS: NYSTATIN POWDER 15 GM BOTTLE TOP SCH (09:05)
[2018-10-15] MEDS ORDERED: amLODIPine 5 MG TABLET PO SCH (09:30)
[2018-10-15 11:25] VITALS: BP 109/58
== END 2018-10-15 17:16 | disposition home health service (06) | DRG 286 ==
LOC: N.ED 16:00 → N.EDINP 16:00 → N.5E 22:02 → SUATTDRO 10-08 09:47 → N.CC 10-09 09:24 → N.5E 10-12 16:18
PROVIDERS: ADMIT Hospitalist; ATTEND Internal Medicine

== ENCOUNTER 2019-04-12 02:19 | Observation (INO) ==
[2019-04-12 03:00] LABS: Basophils % 0.4 % (0.0-0.8); Eosinophils # 0.2 10*3/uL (0.0-0.87); Eosinophils % 2.1 % (0.00-10.9); Hematocrit 40.8 VOL% (35.7-47.0); Hemoglobin 12.7 GM/DL (12.0-16.0); Immature Granulocytes % 0.8 %; Immature Granulocytes Absolute 0.08 #; Lymphocytes # 1.5 10*3/uL (1.4-4.0); Lymphocytes % 14.5 % (21.3-54.2); Mean Corpuscular HGB Conc 31.1 GM/DL (32-36); Mean Corpuscular Volume 87.2 FL (87-102); Monocytes % 7.3 % (1.7-12.7); Neutrophils % 74.9 % (38.7-73.9); Platelet Count 205 T/CUMM (130-400); Red Blood Count 4.68 MC/CUMM (3.8-5.5); Red Cell Distribution Width 15.9 % (9.3-17.3); White Blood Count 10.5 T/CUMM (4-12)
[2019-04-12] MEDS ORDERED: ALBUTEROL/IPRATROPIUM 3 ML NEB RESP TX STA (03:16)
[2019-04-12] MEDS ORDERED: methylPREDNISolone SOD SUC 125 MG/2 ML VIAL IV STA (03:16)
[2019-04-12 03:19] LABS: Albumin 3.1 G/DL (3.4-5.0); Bilirubin,Total 0.4 MG/DL (0.2-1.0); Calcium 8.3 MG/DL (8.5-10.1); Osmolality,Calculated 297.5 MOS/KG (273-304); Total Protein 7.5 G/DL (6.4-8.3)
[2019-04-12 03:48] LABS: ABG HCO3 26.2 MMOL/L (20-26); ABG Oxygen Saturation 96.4 % (95-100); ABG PCO2 46.5 MM HG (35-48); ABG PH 7.382 (7.35-7.45); ABG PO2 92.4 MM HG (80-95); ABG TCO2 24.6 MMOL/L (23-27)
[2019-04-12] MEDS ORDERED: MAGNESIUM CHLORIDE 64 MG TABLET PO STA (03:50)
[2019-04-12] MEDS ORDERED: LEVOFLOXACIN INJ 500 MG in PREMIX 1 EACH IV STA (04:35)
[2019-04-12] MEDS ORDERED: traZODone 50 MG TABLET PO PRN (04:42)
[2019-04-12] MEDS ORDERED: ACETAMINOPHEN 325 MG TABLET PO PRN (04:42)
[2019-04-12] MEDS ORDERED: MAGNESIUM SULF RIDER 2 GM in PREMIX 1 EACH IV PRN (04:42)
[2019-04-12] MEDS ORDERED: NICOTINE 21 MG/24 HR PATCH TRANSDERM PRN (04:42)
[2019-04-12] MEDS ORDERED: DEXTROSE 50% 25 GM/50 ML VIAL IV PRN (04:42)
[2019-04-12] MEDS ORDERED: MORPHINE 4 MG/1 ML VIAL IV PRN (04:42)
[2019-04-12] MEDS ORDERED: ONDANSETRON 4 MG/2 ML VIAL IV PRN (04:42)
[2019-04-12] MEDS ORDERED: GLUCAGON 1 MG VIAL IM PRN (04:42)
[2019-04-12] MEDS ORDERED: guaiFENesin/DM ER 600-30 MG TABLET PO PRN (04:42)
[2019-04-12] MEDS ORDERED: MAGNESIUM SULF RIDER 4 GM in PREMIX 1 EACH IV PRN (04:42)
[2019-04-12] MEDS ORDERED: BISACODYL 5 MG TABLET PO PRN (04:42)
[2019-04-12] MEDS ORDERED: diphenhydrAMINE CAP 25 MG CAPSULE PO PRN (04:42)
[2019-04-12] MEDS ORDERED: POTASSIUM CHLORIDE 20 MEQ TABLET PO PRN (04:42)
[2019-04-12] MEDS ORDERED: FUROSEMIDE 20 MG/2 ML VIAL IV STA (04:42)
[2019-04-12] MEDS: ALBUTEROL/IPRATROPIUM 3 ML NEB RESP TX SCH ×3 (07:35→21:21)
[2019-04-12] MEDS: tiZANidine 4 MG TABLET PO SCH ×3 (08:28→21:21)
[2019-04-12] MEDS: METHENAMINE HIPPURATE 1 GM TABLET PO SCH ×2 (08:29→21:21)
[2019-04-12] MEDS: CHOLECALCIFEROL 1,000 UNIT TABLET PO SCH (08:29)
[2019-04-12] MEDS: ATENOLOL 25 MG TABLET PO SCH (08:30)
[2019-04-12] MEDS: ASPIRIN EC 81 MG TABLET PO SCH (08:30)
[2019-04-12] MEDS: POTASSIUM CHLORIDE 10 MEQ TABLET PO SCH ×2 (08:30→21:26)
[2019-04-12] MEDS: amLODIPine 5 MG TABLET PO SCH (08:30)
[2019-04-12] MEDS: INSULIN REGULAR 100 UNIT/ML SUBCUT SCH ×4 (08:30→21:21)
[2019-04-12] MEDS: FERROUS SULFATE ER 140 MG TABLET PO SCH (12:37)
[2019-04-12] MEDS: methylPREDNISolone SOD SUC 40 MG/1 ML VIAL IV SCH (16:04)
[2019-04-12] MEDS ORDERED: LIRAGLUTIDE 0.6 MG SUBCUT SCH (21:00)
[2019-04-12] MEDS: INSULIN GLARGINE 100 UNIT/ML SUBCUT SCH (21:22)
[2019-04-13] MEDS: methylPREDNISolone SOD SUC 40 MG/1 ML VIAL IV SCH (03:58)
[2019-04-13] MEDS: ALBUTEROL/IPRATROPIUM 3 ML NEB RESP TX SCH ×4 (04:00→19:09)
[2019-04-13] MEDS: LEVOFLOXACIN INJ 250 MG in PREMIX 1 EACH IV SCH (06:33)
[2019-04-13] MEDS: INSULIN REGULAR 100 UNIT/ML SUBCUT SCH ×4 (09:00→23:02)
[2019-04-13] MEDS: POTASSIUM CHLORIDE 10 MEQ TABLET PO SCH ×2 (10:59→23:02)
[2019-04-13] MEDS: ASPIRIN EC 81 MG TABLET PO SCH (10:59)
[2019-04-13] MEDS: ATENOLOL 25 MG TABLET PO SCH (11:00)
[2019-04-13] MEDS: METHENAMINE HIPPURATE 1 GM TABLET PO SCH ×2 (11:00→21:53)
[2019-04-13] MEDS: FERROUS SULFATE ER 140 MG TABLET PO SCH (11:00)
[2019-04-13] MEDS: tiZANidine 4 MG TABLET PO SCH ×3 (11:00→21:53)
[2019-04-13] MEDS: CHOLECALCIFEROL 1,000 UNIT TABLET PO SCH (11:00)
[2019-04-13] MEDS: amLODIPine 5 MG TABLET PO SCH (11:00)
[2019-04-13] MEDS ORDERED: INSULIN REGULAR 100 UNIT/ML SUBCUT ONE (16:07)
[2019-04-13] MEDS: INSULIN GLARGINE 100 UNIT/ML SUBCUT SCH (21:53)
[2019-04-14] MEDS: ALBUTEROL/IPRATROPIUM 3 ML NEB RESP TX SCH ×3 (00:10→14:31)
[2019-04-14 06:03] LABS: Basophils % 0.3 % (0.0-0.8); Eosinophils # 0.1 10*3/uL (0.0-0.87); Eosinophils % 0.6 % (0.00-10.9); Hematocrit 38.1 VOL% (35.7-47.0); Hemoglobin 11.8 GM/DL (12.0-16.0); Lymphocytes # 2.2 10*3/uL (1.4-4.0); Lymphocytes % 21.2 % (21.3-54.2); Mean Corpuscular Volume 86.6 FL (87-102); Mean Platelet Volume 12.3 FL (9.6-12.0); Neutrophils % 67.9 % (38.7-73.9); Platelet Count 199 T/CUMM (130-400); Red Cell Distribution Width 15.9 % (9.3-17.3); White Blood Count 10.3 T/CUMM (4-12)
[2019-04-14 06:19] LABS: Calcium 9.1 MG/DL (8.5-10.1); Osmolality,Calculated 303.8 MOS/KG (273-304)
[2019-04-14] MEDS: INSULIN REGULAR 100 UNIT/ML SUBCUT SCH ×2 (08:36→13:02)
[2019-04-14] MEDS ORDERED: predniSONE 20 MG TABLET PO SCH (09:00)
[2019-04-14] MEDS: CHOLECALCIFEROL 1,000 UNIT TABLET PO SCH (09:38)
[2019-04-14] MEDS: FERROUS SULFATE ER 140 MG TABLET PO SCH (09:38)
[2019-04-14] MEDS: ASPIRIN EC 81 MG TABLET PO SCH (09:38)
[2019-04-14] MEDS: METHENAMINE HIPPURATE 1 GM TABLET PO SCH (09:38)
[2019-04-14] MEDS: ATENOLOL 25 MG TABLET PO SCH (09:38)
[2019-04-14] MEDS: POTASSIUM CHLORIDE 10 MEQ TABLET PO SCH (09:39)
[2019-04-14] MEDS: amLODIPine 5 MG TABLET PO SCH (09:39)
[2019-04-14] MEDS: tiZANidine 4 MG TABLET PO SCH (09:39)
[2019-04-14] MEDS: LEVOFLOXACIN INJ 250 MG in PREMIX 1 EACH IV SCH (11:22)
[2019-04-14 11:28] VITALS: BP 114/60
== END 2019-04-14 14:25 | disposition home health service (06) ==
LOC: N.EDINP 02:19 → N.ED 02:19 → SUATTDRO 04:42 → N.TELEN 05:02
PROVIDERS: ADMIT Emergency Medicine; ATTEND Internal Medicine

== ENCOUNTER 2020-05-22 15:54 | Inpatient (IN) ==
[2020-05-22] MEDS ORDERED: SODIUM CHLORIDE 0.9% 1,000 ML IV STA (16:12)
[2020-05-22] MEDS ORDERED: ONDANSETRON 4 MG/2 ML VIAL IV ONE (16:12)
[2020-05-22 16:45] LABS: Basophils % 0.2 % (0.0-0.8); Eosinophils # 0.1 10*3/uL (0.0-0.87); Eosinophils % 0.6 % (0.00-10.9); Hematocrit 19.2 VOL% (35.7-47.0); Immature Granulocytes % 2.9 %; Immature Granulocytes Absolute 0.49 #; Lymphocytes # 1.7 10*3/uL (1.4-4.0); Lymphocytes % 10.3 % (21.3-54.2); Mean Corpuscular HGB Conc 31.8 GM/DL (32-36); Mean Corpuscular Volume 83.1 FL (87-102); Mean Platelet Volume 10.8 FL (9.6-12.0); Monocytes % 4.8 % (1.7-12.7); NRBC # 0.02 10*3/uL; Neutrophils % 81.2 % (38.7-73.9); Platelet Count 277 T/CUMM (130-400); Red Blood Count 2.31 MC/CUMM (3.8-5.5); Red Cell Distribution Width 15.4 % (9.3-17.3); White Blood Count 16.7 T/CUMM (4-12)
[2020-05-22 16:51] LABS: Hemoglobin 6.1 GM/DL (12.0-16.0)
[2020-05-22 16:55] LABS: PT Patient Result 11.1 SECS (9.8-11.9)
[2020-05-22 17:16] LABS: Alanine Aminotransferase 10 U/L (13-56); Albumin 1.9 G/DL (3.4-5.0); Alkaline Phosphatase 54 U/L (45-117); Aspartate Amino Transferase 8 U/L (0-37); Bilirubin,Total < 0.39 MG/DL (0.2-1.0); Blood Urea Nitrogen 99 MG/DL (7-18); Calcium 8.1 MG/DL (8.5-10.1); Estimated Glom Filtration Rate 50 ML/MIN; Glucose 326 MG/DL (74-106); Total Protein 6.1 G/DL (6.4-8.3); Troponin I < 0.015 NG/ML (0.00-0.045)
[2020-05-22] MEDS ORDERED: PANTOPRAZOLE INJ 80 MG in SODIUM CHLORIDE 0.9% 100 ML IV ONE (17:34)
[2020-05-22] MEDS ORDERED: SODIUM CHLORIDE 0.9% 1,000 ML IV PRN (17:35)
[2020-05-22] MEDS ORDERED: GLUCAGON 1 MG VIAL IM PRN (17:41)
[2020-05-22] MEDS ORDERED: ONDANSETRON 4 MG/2 ML VIAL IV PRN (17:41)
[2020-05-22 17:59] LABS: Bacteria,Urine Many /HPF (Few); Bilirubin,Urine Negative (Negative); Blood, Urine Negative (Negative); Glucose,Urine (UA) Negative (Negative); Ketones,Urine Negative (Negative); Nitrite,Urine Negative (Negative); Protein,Urine Negative; RBC,Urine 2 /HPF (0-4); Squamous Epithelial Cell,Urine Occasional /HPF (0-10); Urine Appearance Slightly Hazy (Clear); Urine Color Straw (Yellow); Urine Specific Gravity 1.014 (1.001-1.035); Urine Urobilinogen < 2.0 EU/DL (0.2-1.0); WBC,Urine 37 /HPF (0-6)
[2020-05-22] MEDS ORDERED: PANTOPRAZOLE 40 MG VIAL IV ONE (18:22)
[2020-05-22 19:55] LABS: Hematocrit 17.7 VOL% (35.7-47.0); Hemoglobin 5.5 GM/DL (12.0-16.0)
[2020-05-22] MEDS: PANTOPRAZOLE INJ 200 MG in SODIUM CHLORIDE 0.9% 250 ML IV SCH (20:10)
[2020-05-22] MEDS: INSULIN LISPRO 100 UNIT/ML SUBCUT SCH (20:51)
[2020-05-23 05:44] LABS: Basophils % 0.3 % (0.0-0.8); Eosinophils # 0.7 10*3/uL (0.0-0.87); Eosinophils % 5.3 % (0.00-10.9); Hematocrit 22.8 VOL% (35.7-47.0); Immature Granulocytes % 2.9 %; Immature Granulocytes Absolute 0.36 #; Mean Corpuscular HGB Conc 32.5 GM/DL (32-36); Mean Corpuscular Volume 83.5 FL (87-102); Monocytes % 7.5 % (1.7-12.7); Platelet Count 248 T/CUMM (130-400); Red Blood Count 2.73 MC/CUMM (3.8-5.5); Red Cell Distribution Width 15.7 % (9.3-17.3); White Blood Count 12.5 T/CUMM (4-12)
[2020-05-23 06:11] LABS: Hemoglobin 7.4 GM/DL (12.0-16.0)
[2020-05-23 06:21] LABS: Calcium 8.1 MG/DL (8.5-10.1); Osmolality,Calculated 311.8 MOS/KG (273-304); Risk Ratio 2.91; Thyroid Stimulating Hormone 1.16 uIU/ml (0.358-3.74); VLDL CHOLESTEROL 34.2 MG/DL
[2020-05-23] MEDS: atenoloL 25 MG TABLET PO SCH (08:24)
[2020-05-23] MEDS ORDERED: PANTOPRAZOLE 40 MG VIAL IV SCH (09:00)
[2020-05-23] MEDS: INSULIN LISPRO 100 UNIT/ML SUBCUT SCH ×4 (09:08→21:52)
[2020-05-23 11:43] LABS: Hemoglobin 7.4 GM/DL (12.0-16.0)
[2020-05-23 16:05] LABS: Hematocrit 24.2 VOL% (35.7-47.0); Hemoglobin 7.6 GM/DL (12.0-16.0)
[2020-05-23] MEDS: PANTOPRAZOLE INJ 200 MG in SODIUM CHLORIDE 0.9% 250 ML IV SCH ×2 (18:39→23:59)
[2020-05-24 06:44] LABS: Basophils % 0.4 % (0.0-0.8); Eosinophils # 0.6 10*3/uL (0.0-0.87); Eosinophils % 4.9 % (0.00-10.9); Hematocrit 23.3 VOL% (35.7-47.0); Hemoglobin 7.4 GM/DL (12.0-16.0); Immature Granulocytes % 2.3 %; Immature Granulocytes Absolute 0.26 #; Lymphocytes # 1.6 10*3/uL (1.4-4.0); Lymphocytes % 14.1 % (21.3-54.2); Mean Corpuscular HGB Conc 31.8 GM/DL (32-36); Mean Corpuscular Volume 85.3 FL (87-102); Mean Platelet Volume 10.4 FL (9.6-12.0); Monocytes % 6.6 % (1.7-12.7); NRBC # 0.03 10*3/uL; Neutrophils % 71.7 % (38.7-73.9); Platelet Count 252 T/CUMM (130-400); Red Blood Count 2.73 MC/CUMM (3.8-5.5); Red Cell Distribution Width 16.2 % (9.3-17.3); White Blood Count 11.2 T/CUMM (4-12)
[2020-05-24 07:02] LABS: Calcium 8.4 MG/DL (8.5-10.1); Osmolality,Calculated 305.6 MOS/KG (273-304)
[2020-05-24] MEDS ORDERED: SODIUM CHLORIDE 0.9% 1,000 ML IV PRN ×2 (08:11→08:59)
[2020-05-24] MEDS ORDERED: LIDOCAINE 2% 5 ML VIAL ONE (08:55)
[2020-05-24] MEDS ORDERED: propofoL 200 MG/20 ML VIAL IV ONE (08:55)
[2020-05-24] MEDS ORDERED: PHENYLEPHRINE 1 MG/10 ML SYRINGE IV ONE (08:55)
[2020-05-24] MEDS: LACTATED RINGERS 1,000 ML IV SCH (09:06)
[2020-05-24] MEDS: INSULIN LISPRO 100 UNIT/ML SUBCUT SCH ×4 (09:36→21:25)
[2020-05-24] MEDS: cefTRIAXone 1,000 MG in SYRINGE 1 EACH IV SCH (10:25)
[2020-05-24] MEDS: atenoloL 25 MG TABLET PO SCH (10:52)
[2020-05-24] MEDS: DEXTROSE 5% 1,000 ML IV SCH (11:44)
[2020-05-24 22:51] LABS: Hematocrit 26.5 VOL% (35.7-47.0); Hemoglobin 8.7 GM/DL (12.0-16.0)
[2020-05-25] MEDS: PANTOPRAZOLE INJ 200 MG in SODIUM CHLORIDE 0.9% 250 ML IV SCH (03:43)
[2020-05-25 06:30] LABS: Basophils % 0.3 % (0.0-0.8); Eosinophils # 0.6 10*3/uL (0.0-0.87); Eosinophils % 5.7 % (0.00-10.9); Hematocrit 29.8 VOL% (35.7-47.0); Hemoglobin 9.4 GM/DL (12.0-16.0); Immature Granulocytes % 1.8 %; Lymphocytes # 1.5 10*3/uL (1.4-4.0); Lymphocytes % 13.1 % (21.3-54.2); Mean Corpuscular HGB Conc 31.5 GM/DL (32-36); Mean Corpuscular Volume 86.4 FL (87-102); NRBC # 0.07 10*3/uL; Neutrophils % 72.1 % (38.7-73.9); Platelet Count 240 T/CUMM (130-400); Red Blood Count 3.45 MC/CUMM (3.8-5.5); Red Cell Distribution Width 16.1 % (9.3-17.3); White Blood Count 11.1 T/CUMM (4-12)
[2020-05-25 06:59] LABS: Calcium 8.1 MG/DL (8.5-10.1); Osmolality,Calculated 293.1 MOS/KG (273-304)
[2020-05-25] MEDS: atenoloL 25 MG TABLET PO SCH (09:21)
[2020-05-25] MEDS: cefTRIAXone 1,000 MG in SYRINGE 1 EACH IV SCH (09:22)
[2020-05-25] MEDS: INSULIN LISPRO 100 UNIT/ML SUBCUT SCH ×4 (09:22→21:08)
[2020-05-25] MEDS: DEXTROSE 5% 1,000 ML IV SCH ×2 (10:41→15:58)
[2020-05-25] MEDS: LACTATED RINGERS 1,000 ML IV SCH (12:52)
[2020-05-26 05:22] LABS: Basophils % 0.3 % (0.0-0.8); Eosinophils # 0.7 10*3/uL (0.0-0.87); Eosinophils % 5.8 % (0.00-10.9); Hematocrit 26.7 VOL% (35.7-47.0); Hemoglobin 8.4 GM/DL (12.0-16.0); Immature Granulocytes % 1.1 %; Immature Granulocytes Absolute 0.13 #; Lymphocytes # 2.1 10*3/uL (1.4-4.0); Lymphocytes % 18.7 % (21.3-54.2); Mean Corpuscular HGB Conc 31.5 GM/DL (32-36); Mean Corpuscular Volume 88.7 FL (87-102); Mean Platelet Volume 10.6 FL (9.6-12.0); Monocytes % 7.2 % (1.7-12.7); NRBC # 0.03 10*3/uL; Neutrophils % 66.9 % (38.7-73.9); Platelet Count 212 T/CUMM (130-400); Red Blood Count 3.01 MC/CUMM (3.8-5.5); Red Cell Distribution Width 16.7 % (9.3-17.3); White Blood Count 11.3 T/CUMM (4-12)
[2020-05-26 05:39] LABS: Calcium 7.9 MG/DL (8.5-10.1); Osmolality,Calculated 287.1 MOS/KG (273-304)
[2020-05-26] MEDS: DEXTROSE 5% 1,000 ML IV SCH (06:11)
[2020-05-26] MEDS: PANTOPRAZOLE INJ 200 MG in SODIUM CHLORIDE 0.9% 250 ML IV SCH (06:11)
[2020-05-26 07:43] VITALS: BP 110/43
[2020-05-26] MEDS: cefTRIAXone 1,000 MG in SYRINGE 1 EACH IV SCH (08:42)
[2020-05-26] MEDS: atenoloL 25 MG TABLET PO SCH (08:42)
[2020-05-26] MEDS: INSULIN LISPRO 100 UNIT/ML SUBCUT SCH (08:45)
== END 2020-05-26 11:14 | disposition home or self-care (01) | DRG 378 ==
LOC: N.ED 15:54 → N.EDINP 17:41 → N.5E 18:39
PROVIDERS: ADMIT Internal Medicine; ATTEND Internal Medicine

== ENCOUNTER 2021-06-17 10:01 | Inpatient (IN) ==
[2021-06-17 12:25] LABS: Basophils % 0.1 % (0.0-0.8); Hematocrit 40.9 VOL% (35.7-47.0); Hemoglobin 12.8 GM/DL (12.0-16.0); Immature Granulocytes % 0.9 %; Immature Granulocytes Absolute 0.19 #; Lymphocytes # 1.3 10*3/uL (1.4-4.0); Lymphocytes % 6.2 % (21.3-54.2); Mean Corpuscular HGB Conc 31.3 GM/DL (32-36); Mean Corpuscular Volume 83.8 FL (87-102); Mean Platelet Volume 11.6 FL (9.6-12.0); Monocytes % 3.6 % (1.7-12.7); Neutrophils % 89.2 % (38.7-73.9); Platelet Count 226 T/CUMM (130-400); Red Blood Count 4.88 MC/CUMM (3.8-5.5); Red Cell Distribution Width 16.8 % (9.3-17.3); White Blood Count 20.6 T/CUMM (4-12)
[2021-06-17 12:40] LABS: Albumin 2.9 G/DL (3.4-5.0); Bilirubin,Total 0.5 MG/DL (0.20-1.00); Calcium 8.7 MG/DL (8.5-10.1); Osmolality,Calculated 299.5 MOS/KG (273-304); Potassium 4.7 MMOL/L (3.5-5.1); Total Protein 7.2 G/DL (6.4-8.2)
[2021-06-17 12:45] LABS: Band Neutrophils 9 % (0-10); Lymphocytes 4 % (20-55); Segmented Neutrophils 83 % (50-85); Total Cells Counted 100
[2021-06-17 12:46] LABS: Platelet Estimate Normal; Target Cells Slight
[2021-06-17] MEDS ORDERED: cefTRIAXone 2,000 MG in SODIUM CHLORIDE 0.9% 100 ML IV ONE (13:16)
[2021-06-17] MEDS ORDERED: DEXTROSE 50% 25 GM/50 ML VIAL IV PRN (14:34)
[2021-06-17] MEDS ORDERED: ONDANSETRON 4 MG/2 ML VIAL IV PRN (14:34)
[2021-06-17] MEDS ORDERED: DEXTROSE 10% 250 ML BAG IV PRN (14:34)
[2021-06-17] MEDS ORDERED: ACETAMINOPHEN 325 MG TABLET PO PRN (14:34)
[2021-06-17] MEDS ORDERED: GLUCAGON 1 MG VIAL IM PRN ×2 (14:34)
[2021-06-17] MEDS ORDERED: AZITHROMYCIN INJ 500 MG in SODIUM CHLORIDE 0.9% 250 ML IV SCH (15:00)
[2021-06-17] MEDS ORDERED: tiZANidine 4 MG TABLET PO PRN (17:23)
[2021-06-17] MEDS: ALBUTEROL/IPRATROPIUM 3 ML NEB RESP TX SCH (20:25)
[2021-06-17] MEDS: SODIUM CHLORIDE 0.45% 1,000 ML IV SCH (20:29)
[2021-06-17] MEDS ORDERED: ENOXAPARIN 40 MG/0.4 ML SYRINGE SUBCUT SCH (21:00)
[2021-06-17] MEDS: INSULIN REGULAR 100 UNIT/ML SUBCUT SCH ×2 (22:19→22:28)
[2021-06-17] MEDS: PANTOPRAZOLE 40 MG TABLET PO SCH (22:25)
[2021-06-18] MEDS: ALBUTEROL/IPRATROPIUM 3 ML NEB RESP TX SCH ×4 (01:10→19:00)
[2021-06-18 05:05] LABS: Basophils % 0.2 % (0.0-0.8); Hematocrit 39.8 VOL% (35.7-47.0); Hemoglobin 12.1 GM/DL (12.0-16.0); Immature Granulocytes % 0.8 %; Lymphocytes # 1.7 10*3/uL (1.4-4.0); Lymphocytes % 6.6 % (21.3-54.2); Mean Corpuscular HGB Conc 30.4 GM/DL (32-36); Mean Corpuscular Volume 86.5 FL (87-102); Mean Platelet Volume 12.9 FL (9.6-12.0); Monocytes % 3.7 % (1.7-12.7); Neutrophils % 88.7 % (38.7-73.9); Platelet Count 221 T/CUMM (130-400); Red Cell Distribution Width 16.8 % (9.3-17.3)
[2021-06-18 05:40] LABS: Calcium 8.7 MG/DL (8.5-10.1); Osmolality,Calculated 304.4 MOS/KG (273-304); Potassium 4.1 MMOL/L (3.5-5.1)
[2021-06-18 05:51] LABS: Band Neutrophils 6 % (0-10); Hypochromia 1+; Lymphocytes 7 % (20-55); Microcytosis 1+; Platelet Estimate Normal; Segmented Neutrophils 84 % (50-85); Target Cells Slight; Total Cells Counted 100
[2021-06-18] MEDS: SODIUM CHLORIDE 0.45% 1,000 ML IV SCH ×2 (07:52→10:17)
[2021-06-18] MEDS ORDERED: SODIUM CHLORIDE 0.9% 500 ML IV ONE (08:55)
[2021-06-18] MEDS ORDERED: hydrOXYzine HCL 10 MG TABLET PO PRN (08:57)
[2021-06-18] MEDS ORDERED: cefTRIAXone 1,000 MG in SODIUM CHLORIDE 0.9% 100 ML IV SCH (09:00)
[2021-06-18] MEDS ORDERED: ASPIRIN EC 81 MG TABLET PO SCH (09:00)
[2021-06-18] MEDS ORDERED: atenoloL 25 MG TABLET PO SCH (09:00)
[2021-06-18] MEDS ORDERED: CHOLECALCIFEROL 1,000 UNIT TABLET PO SCH (09:00)
[2021-06-18] MEDS ORDERED: MONTELUKAST 10 MG TABLET PO SCH (09:00)
[2021-06-18] MEDS ORDERED: FUROSEMIDE 20 MG TABLET PO SCH (09:00)
[2021-06-18] MEDS ORDERED: SODIUM CHLORIDE 0.45% 500 ML IV ONE ×2 (09:00→10:06)
[2021-06-18] MEDS: PANTOPRAZOLE 40 MG TABLET PO SCH (09:18)
[2021-06-18] MEDS: INSULIN REGULAR 100 UNIT/ML SUBCUT SCH ×4 (09:20→20:35)
[2021-06-18] MEDS ORDERED: LEVOFLOXACIN INJ 500 MG/100 ML PREMIX IV ONE (10:00)
[2021-06-18 11:54] LABS: Bacteria,Urine Occasional /HPF (Few); Bilirubin,Urine Negative (Negative); Blood, Urine Small mg/dL (Negative); Glucose,Urine (UA) Negative (Negative); Ketones,Urine Negative (Negative); Mucus,Urine Occasional /LPF (Occasional); Nitrite,Urine Negative (Negative); Protein,Urine 30 MG/DL; RBC,Urine 2 /HPF (0-4); Squamous Epithelial Cell,Urine Occasional /HPF (0-10); Urine Appearance CLEAR (Clear); Urine Color Yellow (Yellow); Urine Specific Gravity 1.015 (1.001-1.035); Urine Urobilinogen < 2.0 EU/DL (<2.0)
[2021-06-18 12:00] LABS: ABG Base Excess -2.6 MMOL/L (-2.5-2.5); ABG HCO3 22.2 MMOL/L (20-26); ABG Oxygen Saturation 95.1 % (95-100); ABG PCO2 40.7 MM HG (35-48); ABG PH 7.355 (7.35-7.45); ABG PO2 85.4 MM HG (80-95); ABG TCO2 20.5 MMOL/L (23-27)
[2021-06-18 13:57] LABS: Basophils # 0.1 10*3/uL (0.0-0.2); Basophils % 0.2 % (0.0-0.8); Hematocrit 34.2 VOL% (35.7-47.0); Hemoglobin 10.7 GM/DL (12.0-16.0); Immature Granulocytes % 1.1 %; Lymphocytes # 1.7 10*3/uL (1.4-4.0); Lymphocytes % 6.2 % (21.3-54.2); Mean Corpuscular HGB Conc 31.3 GM/DL (32-36); Mean Corpuscular Volume 84.9 FL (87-102); Mean Platelet Volume 11.7 FL (9.6-12.0); Monocytes % 3.4 % (1.7-12.7); Neutrophils % 89.1 % (38.7-73.9); Platelet Count 169 T/CUMM (130-400); Red Blood Count 4.03 MC/CUMM (3.8-5.5); Red Cell Distribution Width 16.7 % (9.3-17.3); White Blood Count 27.3 T/CUMM (4-12)
[2021-06-18] MEDS ORDERED: MEROPENEM 500 MG in SODIUM CHLORIDE 0.9% 100 ML IV SCH (14:00)
[2021-06-18 14:17] LABS: Osmolality,Calculated 300.7 MOS/KG (273-304); Potassium 4.6 MMOL/L (3.5-5.1)
[2021-06-18 14:19] LABS: Band Neutrophils 12 % (0-10); Hypochromia 1+; Lymphocytes 7 % (20-55); Segmented Neutrophils 78 % (50-85); Target Cells Few; Total Cells Counted 100
[2021-06-18 14:20] LABS: Anisocytosis Slight; Platelet Estimate Adequate
[2021-06-18] MEDS ORDERED: LACTATED RINGERS 500 ML IV ONE (15:47)
[2021-06-18] MEDS: PHENYLEPHRINE DRIP 40 MG/250 ML PREMIX IV PRN ×3 (15:50→21:36)
[2021-06-18] MEDS ORDERED: PANTOPRAZOLE 40 MG VIAL IV SCH (15:54)
[2021-06-18 16:05] LABS: Basophils % 0.1 % (0.0-0.8); Hematocrit 35.1 VOL% (35.7-47.0); Immature Granulocytes % 1.1 %; Lymphocytes # 1.8 10*3/uL (1.4-4.0); Lymphocytes % 6.4 % (21.3-54.2); Mean Corpuscular HGB Conc 31.3 GM/DL (32-36); Mean Corpuscular Volume 85.2 FL (87-102); Mean Platelet Volume 12.2 FL (9.6-12.0); Monocytes % 3.6 % (1.7-12.7); Neutrophils % 88.8 % (38.7-73.9); Platelet Count 178 T/CUMM (130-400); Red Blood Count 4.12 MC/CUMM (3.8-5.5); Red Cell Distribution Width 16.8 % (9.3-17.3); White Blood Count 28.5 T/CUMM (4-12)
[2021-06-18 16:26] LABS: Band Neutrophils 6 % (0-10); Hypochromia 1+; Lymphocytes 10 % (20-55); Segmented Neutrophils 80 % (50-85); Total Cells Counted 100
[2021-06-18 16:27] LABS: Burr Cells Few; Target Cells Few
[2021-06-18 16:28] LABS: Anisocytosis Slight; Elliptocytes Few; Platelet Estimate Adequate
[2021-06-18] MEDS ORDERED: LACTATED RINGERS 1,000 ML IV SCH (16:30)
[2021-06-18] MEDS ORDERED: SUCCINYLCHOLINE 200 MG/10 ML VIAL ONE (19:11)
[2021-06-18] MEDS ORDERED: NOREPINEPHRINE 4 MG/4 ML VIAL IV ONE (19:19)
[2021-06-18] MEDS ORDERED: DOPamine 800 MG/250 ML PREMIX IV PRN (19:21)
[2021-06-18] MEDS ORDERED: METOPROLOL TARTRATE 5 MG/5 ML VIAL IV ONE (19:35)
[2021-06-18] MEDS ORDERED: MIDAZOLAM 100 MG in SODIUM CHLORIDE 0.9% 80 ML IV PRN (19:36)
[2021-06-18] MEDS ORDERED: MIDAZOLAM 2 MG/2 ML VIAL ONE (19:37)
[2021-06-18] MEDS ORDERED: MIDAZOLAM 2 MG/2 ML VIAL IV ONE (19:38)
[2021-06-18 19:45] LABS: Basophils # 0.1 10*3/uL (0.0-0.2); Basophils % 0.2 % (0.0-0.8); Hematocrit 41.8 VOL% (35.7-47.0); Hemoglobin 12.6 GM/DL (12.0-16.0); Immature Granulocytes % 1.5 %; Immature Granulocytes Absolute 0.45 #; Lymphocytes # 5.3 10*3/uL (1.4-4.0); Lymphocytes % 17.8 % (21.3-54.2); Mean Corpuscular HGB Conc 30.1 GM/DL (32-36); Mean Corpuscular Volume 86.7 FL (87-102); Mean Platelet Volume 12.2 FL (9.6-12.0); Monocytes % 4.2 % (1.7-12.7); Neutrophils % 76.3 % (38.7-73.9); Platelet Count 110 T/CUMM (130-400); Red Blood Count 4.82 MC/CUMM (3.8-5.5); Red Cell Distribution Width 16.9 % (9.3-17.3); White Blood Count 29.9 T/CUMM (4-12)
[2021-06-18 20:01] LABS: ABG Base Excess -8.5 MMOL/L (-2.5-2.5); ABG HCO3 17.1 MMOL/L (20-26); ABG Oxygen Saturation 64.4 % (95-100); ABG PCO2 47.1 MM HG (35-48); ABG PH 7.223 (7.35-7.45); ABG PO2 41.4 MM HG (80-95); ABG TCO2 17.8 MMOL/L (23-27)
[2021-06-18 20:14] LABS: Albumin 2.2 G/DL (3.4-5.0); Bilirubin,Total 0.4 MG/DL (0.20-1.00); Calcium 8.2 MG/DL (8.5-10.1); Potassium 5.2 MMOL/L (3.5-5.1); Total Protein 7.6 G/DL (6.4-8.2)
[2021-06-18 20:19] LABS: Band Neutrophils 3 % (0-10); Lymphocytes 23 % (20-55); Segmented Neutrophils 71 % (50-85); Total Cells Counted 100
[2021-06-18 20:20] LABS: Burr Cells Few; Hypochromia Slight; Platelet Estimate Adequate; Target Cells Few
[2021-06-18] MEDS ORDERED: SODIUM BICARBONATE 50 MEQ/50 ML VIAL IV STA (20:20)
[2021-06-18] MEDS ORDERED: SODIUM BICARBONATE 50 MEQ/50 ML VIAL IV ONE (20:20)
[2021-06-18] MEDS ORDERED: SODIUM CHLORIDE 0.9% 1,000 ML IV SCH (20:30)
[2021-06-18 20:39] VITALS: BP 198/87
[2021-06-18 20:56] LABS: Bilirubin,Urine Negative (Negative); Blood, Urine Moderate mg/dL (Negative); Glucose,Urine (UA) Negative (Negative); Ketones,Urine Negative (Negative); Mucus,Urine Occasional /LPF (Occasional); Nitrite,Urine Negative (Negative); Protein,Urine 100 MG/DL; RBC,Urine 48 /HPF (0-4); Squamous Epithelial Cell,Urine Occasional /HPF (0-10); Urine Appearance CLOUDY (Clear); Urine Color Amber (Yellow); Urine Specific Gravity 1.019 (1.001-1.035); Urine Urobilinogen < 2.0 EU/DL (<2.0)
[2021-06-18] MEDS ORDERED: VANCOMYCIN INJ 1,500 MG in SODIUM CHLORIDE 0.9% 500 ML IV PRN (21:00)
[2021-06-18] MEDS ORDERED: PANTOPRAZOLE 40 MG TABLET PO SCH (21:00)
[2021-06-18] MEDS ORDERED: EPINEPHrine 1 MG/10 ML SYRINGE ONE (21:04)
[2021-06-18] MEDS ORDERED: SODIUM BICARBONATE 50 MEQ/50 ML SYRINGE IV ONE (21:04)
[2021-06-18] MEDS ORDERED: VECURONIUM 10 MG VIAL IV ONE ×2 (21:22→21:23)
[2021-06-18 21:26] LABS: Basophils # 0.1 10*3/uL (0.0-0.2); Basophils % 0.3 % (0.0-0.8); Hematocrit 44.6 VOL% (35.7-47.0); Hemoglobin 13.4 GM/DL (12.0-16.0); Immature Granulocytes % 1.3 %; Immature Granulocytes Absolute 0.34 #; Lymphocytes # 2.7 10*3/uL (1.4-4.0); Lymphocytes % 10.1 % (21.3-54.2); Mean Corpuscular Volume 88.5 FL (87-102); Mean Platelet Volume 11.8 FL (9.6-12.0); Monocytes % 2.1 % (1.7-12.7); Neutrophils % 86.2 % (38.7-73.9); Platelet Count 177 T/CUMM (130-400); Red Blood Count 5.04 MC/CUMM (3.8-5.5); Red Cell Distribution Width 16.9 % (9.3-17.3); White Blood Count 26.7 T/CUMM (4-12)
[2021-06-18] MEDS ORDERED: NOREPINEPHRINE 8 MG in SODIUM CHLORIDE 0.9% 242 ML IV PRN (21:30)
[2021-06-18] MEDS ORDERED: VECURONIUM 100 MG in SODIUM CHLORIDE 0.9% 100 ML IV SCH (21:30)
[2021-06-18 21:31] LABS: ABG Base Excess -4.6 MMOL/L (-2.5-2.5); ABG Oxygen Saturation 66.5 % (95-100); ABG PCO2 43.5 MM HG (35-48); ABG PH 7.307 (7.35-7.45); ABG TCO2 19.2 MMOL/L (23-27)
[2021-06-18 21:34] LABS: ABG PO2 37.8 MM HG (80-95)
[2021-06-18 21:41] LABS: Anisocytosis 1+; Band Neutrophils 15 % (0-10); Hypochromia Slight; Lymphocytes 10 % (20-55); Segmented Neutrophils 72 % (50-85); Total Cells Counted 100
[2021-06-18 21:42] LABS: Platelet Estimate Adequate; Target Cells Few
[2021-06-18] MEDS ORDERED: VANCOMYCIN INJ 1,500 MG in SODIUM CHLORIDE 0.9% 500 ML IV ONE (22:00)
[2021-06-19] MEDS ORDERED: LEVOFLOXACIN INJ 250 MG/50 ML PREMIX IV SCH (10:00)
== END 2021-06-18 21:55 | disposition expired | DRG 208 ==
LOC: N.ED 10:01 → N.EDINP 14:35 → SUATTDRO 14:35 → N.EDINP 18:51 → N.3E 19:24 → N.ICU 06-18 11:24
PROVIDERS: ADMIT Phlebology; ATTEND Internal Medicine